=== PATIENT | female | born 1935 | race Caucasian/White ===

== ENCOUNTER 2019-09-11 15:15 | Inpatient (IN) | payer MEDICARE, OTHER ==
[~2019-09-11] VITALS: Ht 154.9 cm; Wt 48.4 kg
[2019-09-11] MEDS ORDERED: ASA81BEC PO (17:34)
[2019-09-11] MEDS ORDERED: LOVENOX40 MG/0.4 SUBQ (17:35)
[2019-09-11] MEDS ORDERED: RESTASIS1 EACH OPHTHALMIC (17:42)
[2019-09-11] MEDS ORDERED: HYDROXYZINE HCL25 M2 PO (17:44)
[2019-09-11] MEDS ORDERED: MULTIVITAMINS1 EAC6 PO (17:47)
[2019-09-11 18:25] VITALS: BP 111/58
[2019-09-11] MEDS ORDERED: TYLENOL EXTRA500 MG PO (19:25)
--- NOTE | 2019-09-11 19:26 | NUR ---
PATIENT ARRIVED VIA W/C VAN AT 1800. PAPER PACKET WAS LEFT AT [facility]. GINO AT [facility] WAS CALLED AT [phone] AND SAID SHE WILL FAX US ORDERS. PATIENT ALERT AND ORIENTED. ORIENTED TO ROOM AND BED CONTROLS. PATIENT ONLY ATE A FEW BITES OF SUPPER. USED CALL LIGHT TO USE BEDSIDE COMMODE TO HAVE LARGE BOWEL MOVEMENT. PATIENT HAD TO BE CUED FREQUENTLY TO ONLY BE TOE TOUCH WEIGHTBEARING TO RIGHT LOWER EXTREMITY, WITH GAIT BELT AND WALKER. BED ALARM AND CHAIR ALARM USED. PATIENT RESTING QUIETLY IN BED AT THIS TIME.
[2019-09-11] MEDS ORDERED: SARNA ANTI-ITC222 ML TOP (19:28)
[2019-09-11] MEDS ORDERED: LIDODERM1 EACH TOP (19:32)
--- NOTE | 2019-09-12 04:43 | NUR ---
ASSUMED CARES AT 1920. PT ALERT AND ORIENTED X3. PLEASANT AND FORGETFUL AT TIMES. PELVIC FX. RLE TTWB. WBAT TO LEFT WRIST. DENIED ANY NEED FOR PAIN MEDS. MIN ASSIST WITH GAIT BELT AND WALKER. UNSTEADY GAIT. UP TO BATHROOM. WEARS PULLUPS. ADMISSION ASSESSMENT COMPLETED. SLEPT WELL. CALL LIGHT IN REACH AND BED ALARM ON.
[2019-09-12 05:07] LABS: HEMATOCRIT 31.9 % (37.0-47.0); HEMOGLOBIN 10.6 gm/dL (12.0-15.0); MCH 27.7 pg (26.0-34.0); MCHC 33.2 g/dL (28.0-37.0); MCV 83.5 fL (80.0-100.0); MPV 7.7 fl. (7.2-11.1); RBC 3.81 mil/uL (4.20-5.00); RDW-CV 15.5 % (10.5-14.5); WBC 5.3 thou/uL (4.0-11.0)
[2019-09-12 05:23] LABS: URINE BILIRUBIN NEGATIVE (Negative); URINE BLOOD NEGATIVE (Negative); URINE CLARITY CLEAR; URINE COLOR YELLOW; URINE GLUCOSE-RANDOM NEGATIVE (Negative); URINE KETONES NEGATIVE (Negative); URINE LEUKOCYTES-REFLEX NEGATIVE (Negative); URINE NITRITE-REFLEX NEGATIVE (Negative); URINE PROTEIN NEGATIVE (Negative); URINE SPECIFIC GRAVITY 1.025 (1.005-1.030); URINE UROBILINOGEN 0.2 E.U./dl (0.2-1.0)
[2019-09-12 05:25] LABS: CALCIUM 8.5 mg/dL (8.5-10.1); CREATININE 0.8 mg/dL (0.6-1.3); POTASSIUM 3.4 mmol/L (3.5-5.1)
[2019-09-12 09:00] VITALS: BP 123/59
--- NOTE | 2019-09-12 11:59 | NUR ---
Nutrition: Pt admitted to rehab with pelvic FX. Regular diet ordered, but BG is elevated 241. RD restricted diet to CHO controlled. No albumin recorded. MVI ordered. Wt: 106#. No other nutrition interventions needed at this time. Will follow weekly. Mild risk.
--- NOTE | 2019-09-12 14:23 | NUR ---
SW met with pt to complete initial assessment, introduce self, and SW role on inpt rehab unit. Pt alert, oriented, slow to answer at times. Pt lives at home alone. Pt reported a history of falls getting out of her bed and pt goal is to "learn how to walk". Pt has cane, RW, wc, according to assessment. Pt says she is not sure of her plan at dc and for SW to discuss with pt son or dtr in law. SW called pt son and left a detailed message and requested call back. SW to continue to follow to assist with safe dc planning.
[2019-09-12 20:08] VITALS: BP 124/70
[2019-09-12 20:13] VITALS: BP 141/72
--- NOTE | 2019-09-12 20:18 | NUR ---
ALERT AND ORIENTED X3 WITH PERIODS OF FORGETFULNESS. PATIENT THOUGHT IT WAS 2018. DENIES NEED FOR PAIN PILL WITH OFFERED. USES LIDOCAINE PATCH FOR RIGHT SIDED PAIN WHICH PATIENT STATES IS HELPFUL. UP WITH 1 ASSIST GAIT BELT AND WALKER. CONTINENT OF BOWEL AND BLADDER. CALL LIGHT WITHIN REACH. BED AND CHAIR ALARM USED.
--- NOTE | 2019-09-13 00:11 | NUR ---
ASSUMED CARE AT 1930. RESTING IN BED. TURNS SELF. UP WITH ONE, GAIT BELT, WALKER, NEEDS MUCH CUEING TO MAINTAIN TTWB TO RLE. STAND PIVOT TO W/C TO TOILET. WILL USE BSC LATER IF NEEDED. TAKES PILLS WHOLE. DENIES PAIN, REFUSED SCHEDULED APAP. WRIST SPLINT ON RUE. INCONTINENT OF URINE BEYOND BRIEF ONTO PJ PANTS, BOTH CHANGED. HOURLY ROUNDS CONTINUE. USES CALL LITE APPROPRIATELY.
--- NOTE | 2019-09-13 05:22 | NUR ---
SLEPT MUCH OF THE NIGHT UP TO BSC TO VOID. NEEDS REMINDERS TO ONLY APPLY TTWB TO RLE, BUT STILL OBSERVED WITH FOOT FLAT ON GROUND. ABLE TO GET LEGS INTO BED PER SELF. HOURLY ROUNDS CONTINUE. BED ALARM ON. CALL LITE IN REACH.
[2019-09-13 08:30] VITALS: BP 129/58
[2019-09-13 20:08] VITALS: BP 143/56
--- NOTE | 2019-09-13 22:33 | NUR ---
ASSUMED CARE AT 1930. PATIENT RESTING IN BED. TURNS SELF. TTWB REINFORCED. MIPILEX DRESSING TO LT KNEE INTACT, NO REDNESS NOTED. NO INCREASED WARMTH ASSESSED. MOVES IN BED WELL. DENIES PAIN. HOURLY ROUNDS CONTINUE. BED ALARM ON. CALL LITE IN REACH.
--- NOTE | 2019-09-14 05:00 | NUR ---
SLELP MOST OF THE NIGHT EXCEPT WHEN AROUSING TO VOID. BED ALARM ON. NEEDS CUEING TO REMEMBER TO USE CALL LITE. PATIENT DOES NOT SEEM TO UNDERSTAND THE CONCEPT OF 24/7 NURSING. SEEMS SURPRISED TO SEE A NURSE ANSWERING HER NEEDS, ALTHOUGH SHE DOES REMEMBER AND IS CONCERNED ABOUT A PENDING SNOW STORM PREDICTED FOR TODAY. UP WITH CGA, GAIT BELT, WALKER. CUEING TO REMEMBER TTWB. ABLE TO GET LEGS BACK INTO BED PER SELF. DENIES PAIN. HOURLY ROUNDS CONTINUE. BED ALARM ON. CALL LITE IN REACH.
[2019-09-14 07:50] VITALS: BP 117/58
--- NOTE | 2019-09-14 19:10 | NUR ---
DR LOZADA SPOKE WITH PATIENT REGARDING HER CODE STATUS AND PT STATED SHE DOES WANT CPR AND A VENTILATOR IF NEEDED.
[2019-09-14 19:30] VITALS: BP 139/53
--- NOTE | 2019-09-14 21:01 | NUR ---
ASSUMED CARE AT 1930. PATIENT RESTING IN BED. TURNS SELF. UP WITH SBA, GAIT BELT, WALKER, NEEDS CUEING FOR TTWB. FORGETFUL AT TIMES BUT WAS VERY ALERT ABOUT THE SNOW STORM THAT CAME THROUGH TODAY AND CONCERNED ABOUT STAFF HAVING PROBLEMS GETTING TO WORK. MIPILEX TO LT KNEE C/D/I. CALL LITE IN REACH. BED ALARM ON. HOURLY ROUNDS CONTINUE.
--- NOTE | 2019-09-15 05:47 | NUR ---
SLEPT MOST OF THE NIGHT. TURNS SELF. VOIDS PER TOILET. NEEDS CUEING FOR TTWB. DENIES PAIN. HOURLY ROUNDS CONTINUE. BED ALARM ON. CALL LITE IN REACH.
[2019-09-15 08:13] VITALS: BP 121/65
--- NOTE | 2019-09-15 16:16 | NUR ---
ASSUMED CARE AT 0730. ALERT ORIENTED PLEASANT COOPERATIVE. HX OF PELVIC FX TTWBRLE NEEDS REMINDERS TO KEEP WEIGHT BEARING STATUS. FORGETFUL AT TIMES. TRANSFERS WITH SBA CUES TO HAND PLACEMENT WHEN GETTING UP FROM BED TO SITTING AND USE OF WALKER. LIODERM PATCH ON RT. BUTTOCKS. TYLENOL SCHEDULED GIVEN BEFORE P.T. THIS AFTERNOON. USES CALL LIGHT APPROPRIATELY FOR ASSIST. FEEDS SELF TAKES MEDS WITHOUT DIFFICULTY.
[2019-09-15 20:00] VITALS: BP 139/57
--- NOTE | 2019-09-16 05:22 | NUR ---
ASSUMED CARES AT 1920. ALERT AND ORIENTED. FORGETFUL AT TIMES. RLE TTWB. DENIED ANY NEED FOR PAIN MEDS. MIN ASSIST WITH GAIT BELT AND WALKER. UP TO BATHROOM. DOES OWN CARES. SLEPT OFF AND ON. CALL LIGHT IN REACH AND BED ALARM ON.
[2019-09-16 07:25] VITALS: BP 142/70
--- NOTE | 2019-09-16 15:43 | NUR ---
CM spoke with Pt's DIL, faxed facesheet to [facility] requesting that they evaluate for [place] ANTHONY, Pt may need LTC in the future.
--- NOTE | 2019-09-16 16:25 | NUR ---
PT IS REMINDED TO CALL FOR ASSIST WITH TRANSFERRS AND AMBULATION.SCHEDUALED TYLENOL GIVEN FOR C/O BACK ACHE THIS AFTERNOON. PT FORGETFULL BUT ALERT. PT IS CONTINENT OF BLADDER. PT EATS MEALS IN DINNINGROOM AND ENJOYS CONVERSATION WITH OTHERS.PT HAS WORKED WITH THERAPIES TODAY.
[2019-09-16 20:30] VITALS: BP 120/64
--- NOTE | 2019-09-17 05:17 | NUR ---
ASSUMED CARE AT 1920. ALERT AND ORIENTED BUT FORGETFUL. PLEASANT. NEEDS CUEING FOR TTWB RLE. DENIED ANY NEED FOR PAIN MEDS. MIN ASSIST WITH GAIT BELT AND WALKER. UP TO BATHROOM. DID HAVE 1 EPISODE OF URINARY INCONTINENCE IN BED. RN ASSISTED WITH BED/CLOTHING CHANGE. SLEPT WELL OTHERWISE. CALL LIGHT IN REACH AND BED ALARM ON.
[2019-09-17 08:00] VITALS: BP 115/50
--- NOTE | 2019-09-17 15:05 | NUR ---
AM ASSESSMENT AND VITAL SIGNS COMPLETED DOCUMENTED. PT IS ALERT, ORIENTED TO SELF AND USUALLY PLACE BUT VERY FORGETFUL REGARDING HER MEDICAL HISTORY. PT STATES SHE HAS BEEN AWARE THAT HER GLUCOSE LEVELS HAVE BEEN HIGH FOR A LONG TIME BUT SHE JUST IGNORES IT. NURSING ATTEMPTED TO PROVIDE EDUCATION ON DIABETES BUT PT STATED SHE DOESN'T WANT IT. PT WILL BE HAVING AN XRAY OF HER KNEE AND PELVIS TODAY. FALL PRECAUTIONS AND HOURLY ROUNDING CONTINUE.
--- NOTE | 2019-09-17 18:08 | NUR ---
Team conference held today. LIMA and Dr Melvin met with pt to review team conference summary and plan for pt to remain on rehab unit another few days, reteam on Sunday and possible dc Sunday to SNF vs home with family. LIMA called pt dtr in law who did not answer so LIMA left a detailed message requesting call back to discuss dc planning.
[2019-09-17 20:00] VITALS: BP 143/56
[2019-09-18 03:23] LABS: ABSOLUTE EOSINOPHILS 0.3 thou/uL (0.0-0.7); ABSOLUTE MONOCYTES 0.6 thou/uL (0.0-1.2); BASOPHILS 0.2 %; EOSINOPHILS 4.3 %; HEMATOCRIT 30.8 % (37.0-47.0); HEMOGLOBIN 10.3 gm/dL (12.0-15.0); LYMPHOCYTES 28.8 %; MCH 28.2 pg (26.0-34.0); MCHC 33.5 g/dL (28.0-37.0); MCV 84.1 fL (80.0-100.0); MONOCYTES 8.2 %; MPV 7.9 fl. (7.2-11.1); NUCLEATED RBCS 0 /100WBC; PLATELET COUNT* 282 thou/uL (150-400); POLYS 58.5 %; RBC 3.66 mil/uL (4.20-5.00); RDW-CV 15.4 % (10.5-14.5); WBC 6.8 thou/uL (4.0-11.0)
[2019-09-18 03:41] LABS: CALCIUM 9.3 mg/dL (8.5-10.1); CREATININE 0.8 mg/dL (0.6-1.3); MAGNESIUM 1.8 mg/dL (1.8-2.4); POTASSIUM 4.1 mmol/L (3.5-5.1)
--- NOTE | 2019-09-18 05:26 | NUR ---
ASSUMED CARE AT 1920. ALERT AND ORIENTED. BUT FORGETFUL. DENIED ANY NEED FOR PAIN MEDS. MIN ASSIST WITH GAIT BELT AND WALKER. UP TO BATHROOM SEVERAL TIMES OVERNIGHT. DOES OWN CARES. TTWB RLE. SLEPT OFF AND ON. CALL LIGHT IN REACH. BED ALARM ON.
[2019-09-18 10:09] VITALS: BP 95/63
--- NOTE | 2019-09-18 16:00 | NUR ---
ASSUMMED CARE OF PT AT 0730, PT ALERT, FORGETFUL, TRANSFERS WITH MIN ASSIST, GB, WALKER NEEDS CONSTANT CUEING TO MAINTAIN TTWB RIGHT LEG, ORTHO CONSULTED TO RECOMMEND WEIGHT BEAR STATUS, LIDODERM PATCH APPLIED TO RIGHT BUTTOCK, TAKING FOOD AND FLUIDS WELL, VOIDS PER TOILET, NO BM THIS SHIFT, PT NEEDS ENCOURAGEMENT TO BE UP IN CHAIR, WANTS TO RETURN TO BED IMMEDIATELY AFTER THERAPY IS COMPLETED, PARTICIPATED IN ALL THERAPIES, HOURLY ROUNDING COMPLETED, ASSESSMENT COMPLETE, WILL CONTINUE TO MONITOR.
[2019-09-18 19:42] VITALS: BP 123/56
--- NOTE | 2019-09-18 22:14 | NUR ---
ASSUMED CARE AT 1930. PATIENT RESTING IN BED. VOIDS PER TOILET, UP WITH GAIT BELT, WBAT, WALKER. DOES OWN CARES. TAKES PILLS WHOLE WITH WATER. REFUSED HS SNACK. DENIES PAIN. POSITIONS SELF, REFUSES TO TURN. DENIES PAIN. HOURLY ROUNDS CONTINUE. BED ALARM ON. CALL LITE IN REACH.
[2019-09-19 02:07] LABS: GLYCOHEMOGLOBIN (HGB A1C) 8.3 % (4.8-5.6)
--- NOTE | 2019-09-19 06:17 | NUR ---
SLEPT MOST OF THE NIGHT. VOIDED PER TOILET 3 TIMES. NEEDS ENCOURAGEMENT TO COMPLETELY RISE TO SITTING POSITION AND IS VERY SLOW WALKING TO TOILET. NO C/O PAIN. HOURLY ROUNDS CONTINUE. BED ALARM ON. CALL LITE IN REACH.
[2019-09-19 08:00] VITALS: BP 108/58
--- NOTE | 2019-09-19 14:00 | NUR ---
PT.S FAMILY WANTING PT.TO GO TO SNF AT DISCHARGE. PT.IN THERAPY. NO FAMILY HERE. NURSING SAID PT.COULD NOT REMEMBER NAME OF FACILITY FAMILY WANTED HER TO GO TO BUT KNOWS SHE NEEDS TO GO SOMEWHERE FOR THERAPIES. LEFT FOR SON,MARITZA PEREZ [phone] TO DISCUSS WHERE HE WOULD LIKE CM TO MAKE REFERRALS. ASKED HIM TO CALL CM BACK.
--- NOTE | 2019-09-19 15:17 | NUR ---
ASSUMMED CARE OF PT AT 0730, PT ALERT AND ORIENTED, FORGETFUL, PT TRANSFERS WITH SBA, GB WALKER WEIGHT BEAR TOLERATED, PT DENIES PAIN, TAKING FOOD AND FLUIDS WELL, VOIDS PER TOILET, HAD LUNCH IN DININGROOM, PARTICIPATED IN ALL THERAPIES, HOURLY ROUNDING COMPLETED, ASSESSMENT COMPLETE, WILL CONTINUE TO MONITOR.
[2019-09-19 20:13] VITALS: BP 128/72
[2019-09-19 21:50] VITALS: BP 128/72
--- NOTE | 2019-09-20 05:30 | NUR ---
MEDS GIVEN ORDERED. PT DENIED PAIN. UP TO THE BATHROOM WITH WALKER AND GAITBELT WITH MINIMUM ASSIST. PT NEEDED HELP WITH SITTING UP FROM LYING POSITION. CALL LIGHT WITHIN REACH. HOURLY ROUNDINGS COMPLETED. WILL CONTINUE TO MONITOR.
[2019-09-20 08:16] VITALS: BP 120/52
--- NOTE | 2019-09-20 14:26 | NUR ---
ASSUMED CARE AT 0730. ALERT ORIENTED PLEASANT COOPERATIVE. HX OF PELVIC FX WBAT. DENIES PAIN OR REQUESTS. TRANSFERS WITH G BELT WALKER AMBULATES WITH SLOW GAIT TO BR TO VOID AND HAD A SMALL BM. ABLE TO DO HYGEINE AND CLOTHING ADJUSTMENTS. USES CALL LIGHT FOR ASSISTANCE BUT DID PUT SELF INTO BED FROM RECLINER X 2. INSTRUCTED TO CALL FOR ASSIST HX OF FALLS. TO DR FOR LUNCH MEALS. APPETITE FAIR TAKES MEDS WITHOUT DIFFICULTY. PARTICIPATING IN THERAPIES, FORGETFUL AT TIMES.
[2019-09-20 19:20] VITALS: BP 123/78; BP 142/88
--- NOTE | 2019-09-21 05:20 | NUR ---
PT ALERT AND ORIENTED. VSS ON RA. MEDS GIVEN PER EMAR. PT SLEPT WELL THIS SHIFT. DENIES PAIN, N/V. PT UP TO BATHROOM WITH WALKER AND GAIT NELT ON STB ASSIST. NO BM NOTED THIS SHIFT. CALL LIGHT WITHIN REACH. HOURLY ROUNDINGS MADE. WILL CONTINUE TO MONITOR.
[2019-09-21 07:30] VITALS: BP 119/57
--- NOTE | 2019-09-21 16:45 | NUR ---
PT A&OX3 VSS. PT UP SBA WITH WALKER AND GAIT BELT. GAIT STEADY. BED/CHAIR ALARMS FOR SAFETY. PT IS ACCUCHECK, NO INSULIN REQUIRED THIS SHIFT. LIDOCAINE PATCH APPLIED TO R HIP/BUTTOCK AREA. PT REMAINS CONTINENT OF B/B THIS SHIFT. PT HAS BEEN APPROVED FOR WEIGHT BEARING TOLERATED PER THERAPY NOTES. PT RESTS IN ROOM WITH CALL LIGHT IN REACH, WILL CONRTINUE TO MONITOR.
[2019-09-21 19:30] VITALS: BP 125/56
--- NOTE | 2019-09-22 05:10 | NUR ---
ASSUMED CARES AT 1920. ALERT AND ORIENTED BUT FORGETFUL AT TIMES. DENIED ANY NEED FOR PAIN MEDS. SBA WITH GAIT BELT AND WALKER. UP TO BATHROOM. DOES OWN CARES. SLEPT WELL. CALL LIGHT IN REACH AND BED ALARM ON.
--- NOTE | 2019-09-22 16:42 | NUR ---
LIMA and Dr Melvin met with pt to review team conference summary and plan for pt to dc to SNF tomorrow, Sunday 09/23. LIMA met with pt son and pt son provided pt family preference of [facility]; LIMA faxed referral to [facility]. SW to continue to follow to assist with finalizing safe dc plan of SNF placement.
--- NOTE | 2019-09-22 18:20 | NUR ---
PATIENT AMBULATING WITH ASSISTANCE, WALKER, AND GAIT BELT. ALL SAFETY MEASURES MAINTAINED. PATIENT AWAKE IN BED. PATIENT DENIES FURTHER NEEDS AT THIS TIME.
[2019-09-22 19:30] VITALS: BP 137/58
--- NOTE | 2019-09-22 23:31 | NUR ---
ASSUMED CARE AT 1930. PATIENT RESTING IN BED. TURNS SELF. TAKES PILLS WHOLE WITH WATER. NO C/O PAIN. VOIDS PER TOILET. WBAT TO RLE. REFUSED HS INSULIN FOR BLOOD SUGAR OF 156, ALSO REFUSED HS SNACK. HOURLY ROUNDS CONTINUE. BED ALARM ON. CALL LITE IN REACH.
--- NOTE | 2019-09-23 06:19 | NUR ---
SLEPT MOST OF THE NIGHT. VOIDED PER TOILET, UP WITH GAIT BELT, WALKER, EXTRA TIME. NEEDS HELP RISING FROM LYING TO SITTING POSITION. NO C/O PAIN. HOURLY ROUNDS CONTINUE. BED ALARM ON. CALL LITE IN REACH.
[2019-09-23 07:35] VITALS: BP 112/54
[2019-09-23] MEDS ORDERED: ELIQUIS2.5 MG PO (11:21)
--- NOTE | 2019-09-23 18:07 | NUR ---
PATIENT AWAKE IN BED. PATIENT AMBULATED THIS SHIFT WITH ASSISTANCE, GAIT BELT, AND WALKER. ALL SAFETY MEASURES MAINTAINED. PATIENT DECLINED INSULIN FOR ELEVATED BLOOD GLUCOSE. PATIENT DENIES FURTHER NEEDS AT THIS TIME.
[2019-09-23 19:30] VITALS: BP 112/52
--- NOTE | 2019-09-24 05:43 | NUR ---
PT ALERT AND ORIENTED. VSS ON RA. PT SLEPT WELL THIS SHIFT. DENIES PAIN THIS SHIFT. PT'S BLOOD GLUCOSE WAS 204 THIS SHIFT. PT REFUSED INSULIN THIS SHIFT. OTHER MEDS GIVEN PER EMAR. FALL PRECAUTION IN PLACE. CALL LIGHT WITHIN REACH. HOURLY ROUNDINGS MADE. WILL CONTINUE PLAN OF CARE.
[2019-09-24 07:55] VITALS: BP 117/62
--- NOTE | 2019-09-24 15:36 | NUR ---
ASSUMMED CARE OF PT AT 0730, PT ALERT, FORGETFUL, TRANSFERS WITH SBA GB WALKER, PT AMBULATES TO BATHROOM TO VOID, PT HAS SET OFF ALARMS X 2 THIS SHIFT, PT RE EDUCATED N FALL RISK, TAKING FOOD AND FLUIDS, REFUSES TO GET UP IN CHAIR, WANTS TO REST IN BED, DID GET DRESSED AND DID HYGIENE AT SINK, REFUSED BATH, VISITORS HERE THIS PM, PT INSISTS ON GETTING IN [place] AT 330, PT INFORMED SHE SHOULD WAIT UNTIL AFTER DINNER BUT STARTED CHANGING CLOTHES, PT CHANGED CLOTHES INDEPENDENTLY. PT COMPLAINS OF PAIN IN RIGHT BUTTOCK, LIDOCAINE PATCH APPLIED, DENIED NEED FOR ADDITIONAL PAIN MEDICATION, ASSESSMENT COMPLETE, HOURLY ROUNDING COMPLETE, WILL CONTINUE TO MONITOR.
[2019-09-24 20:04] VITALS: BP 115/56
--- NOTE | 2019-09-25 06:09 | NUR ---
PT SLEPT WELL OVERNIGHT SHE STATES, AOX4, ABLE TO USE CALL LITE AND MAKE NEEDS KNOWN. CO SLIGHT HIP PAIN BUT DENIES NEED FOR PAIN MEDS. REFUSING INSULIN AT HS. ELIQUIS GIVEN, TAKES PILLS WITHOUT DIFFICULTY. UP WITH GB, WALKER AND SBA TO BR TO VOID WITHOUT DIFFICULTY. LLE SCABBED, HEALING. PT ANTICIPATING DISCHARGE TO [facility] TODAY. CALL LITE IN EASY REACH, BED ALARM ON FOR SAFETY OVERNIGHT.
[2019-09-25 07:49] VITALS: BP 101/47
[2019-09-25 09:22] VITALS: BP 101/47
--- NOTE | 2019-09-25 13:55 | NUR ---
LIMA followed up with Rufino Ashby [facility] admissions about pt pending SNF acceptance today. [facility] admissions said that there is no bed for pt today after all and not tomorrow either. LIMA called pt son Alexandre to discuss second choice for SNF and pt/family request [facility] SNF. LIMA faxed referral and spoke with Estrella in admissions at [facility]; they are able to accept pt today and arranged ride for 3 pm. LIMA faxed final orders and chart copied for continuation of care. LIMA spoke with Alexandre again to confirm and discuss details of dc to [facility] SNF. Pt/family in agreement with plan. Pt nurse aware. [facility] ph [phone]
--- NOTE | 2019-09-25 15:19 | NUR ---
PATIENT UP TO CHAIR FOR MEALS, PATIENT REQUSTED TO LAY IN BED BETWEEN THERAPIES. NO COMPLAINTS OF PAIN. UP WITH SBA AND USE OF WALKER AND GAIT BELT. REPORT CALLED TO [facility] FOR DISCHARGE, SPOKE WITH YURI. PATIENT TAKEN VIA WHEELCHAIR VAN WITH ALL BELONGINGS.
== END 2019-09-25 15:03 | DRG 536 ==
LOC: M.REH 15:15
PROVIDERS: Family Medicine; ADMIT Physical Medicine & Rehabilitation
DX: S32.9XXA Fracture of unspecified parts of lumbosacral spine and pelvis, initial encounter for closed fracture (principal); K21.9 Gastro-esophageal reflux disease without esophagitis; I25.10 Atherosclerotic heart disease of native coronary artery without angina pectoris; E11.42 Type 2 diabetes mellitus with diabetic polyneuropathy; E78.2 Mixed hyperlipidemia; I25.2 Old myocardial infarction; M06.9 Rheumatoid arthritis, unspecified; M54.30 Sciatica, unspecified side; Z96.653 Presence of artificial knee joint, bilateral; Z96.642 Presence of left artificial hip joint; Z90.49 Acquired absence of other specified parts of digestive tract; Z95.5 Presence of coronary angioplasty implant and graft; Z87.891 Personal history of nicotine dependence; Z88.8 Allergy status to other drugs, medicaments and biological substances; Z91.041 Radiographic dye allergy status; W19.XXXA Unspecified fall, initial encounter; Y93.89 Activity, other specified; Y92.89 Other specified places as the place of occurrence of the external cause; Y99.8 Other external cause status

== ENCOUNTER 2019-11-21 14:51 | Inpatient (IN) | payer MEDICARE, OTHER ==
[~2019-11-21] VITALS: Ht 154.9 cm; Wt 45.8 kg
[~2019-11-21 14:51] MED LIST: ASA81BEC PO; ELIQUIS2.5 MG PO; HYDROXYZINE HCL25 M2 PO; LIDODERM1 EACH TOP; LOVENOX40 MG/0.4 SUBQ; MULTIVITAMINS1 EAC6 PO; RESTASIS1 EACH OPHTHALMIC; SARNA ANTI-ITC222 ML TOP; TYLENOL EXTRA500 MG PO
[2019-11-21 15:01] VITALS: BP 94/50
[2019-11-21] MEDS ORDERED: MUCINEX600 MG PO (15:09)
[2019-11-21] MEDS ORDERED: LEVAQUIN 750 M750 MG PO (15:09)
[2019-11-21] MEDS ORDERED: IBUPROFEN IB200 MG PO (15:10)
[2019-11-21] MEDS ORDERED: IPRAT-ALBUT 0.5-3 ML INH (15:10)
[2019-11-21] MEDS ORDERED: FLORASTOR250 MG PO (15:11)
[2019-11-21 15:15] LABS: ABSOLUTE BASOPHILS 0.1 thou/uL (0.0-0.2); ABSOLUTE EOSINOPHILS 0.2 thou/uL (0.0-0.7); ABSOLUTE LYMPHOCYTES 1.4 thou/uL (0.8-5.3); ABSOLUTE MONOCYTES 0.6 thou/uL (0.0-1.2); ABSOLUTE NEUTROPHILS 9.1 thou/uL (1.6-8.1); BASOPHILS 0.6 %; EOSINOPHILS 1.5 %; HEMATOCRIT 33.9 % (37.0-47.0); HEMOGLOBIN 11.1 gm/dL (12.0-15.0); LYMPHOCYTES 12.4 %; MCH 27.2 pg (26.0-34.0); MCHC 32.8 g/dL (28.0-37.0); MCV 83.1 fL (80.0-100.0); MONOCYTES 4.9 %; MPV 7.3 fl. (7.2-11.1); NUCLEATED RBCS 0 /100WBC; PLATELET COUNT* 200 thou/uL (150-400); POLYS 80.6 %; RBC 4.08 mil/uL (4.20-5.00); RDW-CV 15.6 % (10.5-14.5); WBC 11.3 thou/uL (4.0-11.0)
[2019-11-21 15:23] LABS: APTT 27.7 Seconds (25.0-31.3); CALCIUM 8.3 mg/dL (8.5-10.1); INR 1.2; PROTIME 11.8 Seconds (9.20-11.50)
[2019-11-21 15:25] LABS: POTASSIUM 2.7 mmol/L (3.5-5.1)
[2019-11-21 15:33] LABS: ALBUMIN 2.6 g/dL (3.4-5.0); TOTAL BILIRUBIN 0.5 mg/dL (<0.1-1.0); TOTAL PROTEIN 6.4 g/dL (6.4-8.2)
[2019-11-21 17:09] VITALS: BP 108/50
[2019-11-21 17:30] VITALS: BP 83/48
--- NOTE | 2019-11-21 17:44 | EKG ---
[place] [address] ELECTROCARDIOGRAM REPORT Name: MARY MARKS Room: [place] [address] ADM IN ..#: [id number] Admission: 11/21/19 Attend Phys: Boyd Gonzalez, Discharge: Date of : 31 Date of Service: 11/21/19 1531 Report #: [id number] THIS REPORT FOR: //name// [facility] ED Test Date: 2019-11-21 Test Time: 15:31:59 Pat Name: MARY MARKS Department: Room: [facility] Gender: F Medicinal Chemist: : 1935 Requested By: Varun Mendieta Order Number: [id number] MD: Benny Kaufman Measurements Intervals [place] Rate: 99 P: 98 IA: 168 QRS: -46 QRSD: 109 T: 126 QT: 365 QTc: 469 Interpretive Statements Sinus rhythm LAD, consider left anterior fascicular block Abnormal repolarization, lateral leads No previous ECG available for comparison Electronically Signed On 11-21-2019 17:43:34 FEED HANDLER by Benny Kaufman [email or web address] <ELECTRONICALLY SIGNED> By: Benny Kaufman MD, FACC 11/21/19 1743 1531 1531 Benny Kaufman MD, [facility] /EPI
[2019-11-21 18:09] LABS: BF RBC 246306 /mm3; TOTAL CELL COUNT 1148 /mm3
[2019-11-21 18:20] LABS: SOURCE THORACENTESIS
[2019-11-21 18:21] LABS: CLARITY CLOUDY; TOTAL VOLUME 5850 ml
[2019-11-21 18:44] LABS: BF EOSINOPHILS 3 %; BF LYMPHOCYTES 84 %; BF MONOCYTES 1 %; BF POLYS 12 %
[2019-11-21 18:45] LABS: BF OTHER CYTO TO FOLLOW
[2019-11-21 19:30] VITALS: BP 104/49
--- NOTE | 2019-11-21 20:11 | NUR ---
PATIENT ARRIVED TO FLOOR AT 1730. DR. SALMON NOTIFIED OF PATIENT'S VITAL SIGNS. NEW ORDER RECEIVED AND VERIFIED WITH READ BACK. PATIENT AWAKE IN BED. PATIENT DENIES FURTHER NEEDS AT THIS TIME.
[2019-11-21] MEDS ORDERED: METFORMIN HCL500 M3 PO (20:15)
[2019-11-22] VITALS: BP 103/51
[2019-11-22 04:00] VITALS: BP 103/54
[2019-11-22 07:19] LABS: URINE BILIRUBIN NEGATIVE (Negative); URINE BLOOD NEGATIVE (Negative); URINE CLARITY CLEAR; URINE COLOR YELLOW; URINE GLUCOSE-RANDOM 2+ (Negative); URINE KETONES 1+ (Negative); URINE LEUKOCYTES-REFLEX NEGATIVE (Negative); URINE NITRITE-REFLEX NEGATIVE (Negative); URINE PROTEIN TRACE (Negative); URINE SPECIFIC GRAVITY >= 1.030 (1.005-1.030); URINE UROBILINOGEN 0.2 E.U./dl (0.2-1.0)
[2019-11-22 07:30] VITALS: BP 113/60
[2019-11-22 08:18] LABS: HEMATOCRIT 31.2 % (37.0-47.0); HEMOGLOBIN 10.1 gm/dL (12.0-15.0); MCH 27.5 pg (26.0-34.0); MCHC 32.5 g/dL (28.0-37.0); MCV 84.6 fL (80.0-100.0); MPV 7.4 fl. (7.2-11.1); NUCLEATED RBCS 0 /100WBC; PLATELET COUNT* 149 thou/uL (150-400); RBC 3.69 mil/uL (4.20-5.00); RDW-CV 15.5 % (10.5-14.5); WBC 9.3 thou/uL (4.0-11.0)
[2019-11-22 08:24] LABS: CALCIUM 7.2 mg/dL (8.5-10.1)
[2019-11-22 08:32] LABS: POTASSIUM 3.8 mmol/L (3.5-5.1)
[2019-11-22 08:57] LABS: ABSOLUTE LYMPHOCYTES 0.4 thou/uL (0.8-5.3); ABSOLUTE MONOCYTES 0.1 thou/uL (0.0-1.2); ABSOLUTE NEUTROPHILS 8.8 thou/uL (1.6-8.1); ANISOCYTOSIS 1+; PLATELET ESTIMATE DECREASED; POIKILOCYTOSIS 1+
[2019-11-22 16:00] VITALS: BP 86/45
--- NOTE | 2019-11-22 16:56 | NUR ---
PATIENT UP TO CHAIR WITH ENCOURAGEMENT TWICE THIS SHIFT. UP TO BATHROOM WITH ASSISTANCE AND USE OF WALKER. IVF INFUSING ORDERED, MULT ABX. MG REPLACED PER PROTOCOL FOR LAB VALUE OF 1.2, DR. SALMON NOTIFIED THAT MG LEVEL NOW 3.3, NO RESPONSE AT THIS TIME. PATIENT SEEN BY ST TODAY FOR C/O SWALLOWING PILLS. PATIENT PLACED ON [facility] ALT GROUND DIET FOR COMFORT. PATIENT STATED HER DENTURES ARE VERY SORE AND WILL SEE A DENTIST NEXT WEEK.
[2019-11-22 17:37] VITALS: BP 98/46
[2019-11-22 18:07] LABS: BODY FLUID AMYLASE 44 U/L (()); BODY FLUID LDH 657 IU/L (()); BODY FLUID PH 7.9 (Not Estab.); BODY FLUID PROTEIN 4.4 g/dL (())
[2019-11-22 19:40] VITALS: BP 94/48
[2019-11-23 02:09] LABS: GLYCOHEMOGLOBIN (HGB A1C) 7.1 % (4.8-5.6)
--- NOTE | 2019-11-23 06:01 | NUR ---
PT ALERT AND ORIENTED. VSS ON RA. MEDS GIVEN PER EMAR. PT REFUSED MUCINEX. NO COUGH NOTED THIS SHIFT. LA WAS CRITICAL. DR HOUSE NOTIFIED. NS 500ML BOLUS GIVEN ORDERED. LA RECHECK WAS 1.4. DR HOUSE NOTIFED. PT UP TO BATHROOM THIS SHIFT. FALL PRECAUTION IN PLACE. CALL LIGHT WITHIN REACH. HOURLY ROUNDINGS MADE. WILL CONTINUE TO MONITOR.
[2019-11-23 07:40] VITALS: BP 122/67
[2019-11-23 16:00] VITALS: BP 95/49
--- NOTE | 2019-11-23 16:09 | NUR ---
PATIENT UP TO CHAIR THIS AM, PATIENT WASHED UP AND ATE BREAKFAST IN CHAIR. NO COMPLAINTS OF PAIN. IV SL, SCHED ZOSYN INFUSED ORDERED. IV WAS RESTARTED TO LEFT AC, PATIENT WAS ROUNDED ON AND FOUND TO HAVE PULLED IV OUT. GOOD APPETITE THIS SHIFT, INSULIN GIVEN WITH MEALS WHEN REQUIRED. DR. SALMON PAGED REGARDING ORDERS FOR VIDEO SWALLOW TOMORROW RECOMMENDED BY ST FROM BEDSIDE EVAL ON 11/22. DR. SALMON READ MESSAGE THROUGH YOU CALL MD BUT NO ORDERS WERE RECEIVED.
[2019-11-23 16:40] LABS: SOURCE THORACENTESIS
[2019-11-23 19:30] VITALS: BP 113/54
[2019-11-24 04:25] LABS: ABSOLUTE EOSINOPHILS 0.1 thou/uL (0.0-0.7); ABSOLUTE LYMPHOCYTES 1.7 thou/uL (0.8-5.3); ABSOLUTE MONOCYTES 0.4 thou/uL (0.0-1.2); ABSOLUTE NEUTROPHILS 8.1 thou/uL (1.6-8.1); BASOPHILS 0.4 %; EOSINOPHILS 0.6 %; HEMATOCRIT 27.6 % (37.0-47.0); LYMPHOCYTES 16.5 %; MCH 27.6 pg (26.0-34.0); MCHC 32.5 g/dL (28.0-37.0); MCV 84.9 fL (80.0-100.0); MONOCYTES 4.3 %; MPV 7.5 fl. (7.2-11.1); NUCLEATED RBCS 0 /100WBC; PLATELET COUNT* 141 thou/uL (150-400); POLYS 78.2 %; RBC 3.25 mil/uL (4.20-5.00); RDW-CV 16.1 % (10.5-14.5); WBC 10.3 thou/uL (4.0-11.0)
[2019-11-24 04:44] LABS: CALCIUM 7.9 mg/dL (8.5-10.1); CREATININE 0.9 mg/dL (0.6-1.3); POTASSIUM 3.7 mmol/L (3.5-5.1)
--- NOTE | 2019-11-24 05:38 | NUR ---
PT ALERT AND ORIENTED. FORGETFUL. VSS ON RA. MEDS GIVEN PER EMAR. PT DENIES PAIN N/V THIS SHIFT. FALL PRECAUTION IN PLACE. PT SLEPT WELL THIS SHIFT. CALL LIGHT WITHIN REACH. HOURLY ROUNDINGS MADE. WILL CONTINUE TO MONITOR.
[2019-11-24] MEDS ORDERED: PAIN RELIEVER500 MG PO (11:50)
[2019-11-24] MEDS ORDERED: FLORASTOR250 MG PO (11:50)
[2019-11-24] MEDS ORDERED: MIRALAX17 GM PO (11:50)
[2019-11-24] MEDS ORDERED: PANTOPRAZOLE SO40 M1 PO (11:50)
[2019-11-24] MEDS ORDERED: LEVAQUIN 750 M750 MG PO (11:50)
--- NOTE | 2019-11-24 15:05 | NUR ---
Pt lived at home alone and has most recently been at [facility] SNF. Pt nurse reported pt can be forgetful. Pt has hx of inpt rehab at [facility]. Pt has cinthiae, RW, wc. Pt has supportive dtr in law and son. Pt off of iv abx today; possible dc soon however pulmonary recommending pt not ready to dc yet. SW to continue to follow to assist with safe dc planning.
--- NOTE | 2019-11-24 15:31 | NUR ---
ASSESSMENT COMPLETE. PT ALERT AND FORGETFUL. PULMONARY WANTED TO KEEP PATIENT HERE ANOTHER NIGHT. PT IS ON ROOM AIR, SOA WITH EXERTION. VSS. ST CONSULT. TAKES SMALL PILLS ONLY. ACCU CHECK ACHS. DENIES PAIN. BM TODAY. TOLERATING MEALS. DENIES N/V. SKIN W/D/I, BRUISING NOTED. IV ZOSYN GIVEN SCHEDULED. SEE ASSESSMENT AND VITALS FOR OTHER DETAILS. FALL RISK, BED ALARM ON. PT IS UP ONE ASSIST WITH WALKER. PT/OT ORDERED. CALL LIGHT WITHIN REACH, WILL CONTINUE PLAN OF CARE
[2019-11-24 16:00] VITALS: BP 117/59
[2019-11-24 21:00] VITALS: BP 111/51
--- NOTE | 2019-11-25 05:20 | NUR ---
PATIENT SLEPT PART OF THE NIGHT. IV ANTIBIOTIC WAS GIVEN ORDERED. PATIENT REMAINS ON ROOM AIR SATTING 92-94%. WILL CONTINUE TO MONITOR.
[2019-11-25 07:22] VITALS: BP 125/65
--- NOTE | 2019-11-25 13:11 | NUR ---
ASSESSMENT COMPLETE. PT ALERT, FORGETFUL. PULMONARY FOLLOWING PATIENT. ACCU CHECK ACHS. PT IS FALL RISK, BED ALARM IN PLACE. PATIENT HAD SKIN TEAR FROM ACCIDENTLY PULLING OUT IV, PICTURE TAKEN AND WRAPPED. PT IS UP STANDBY ASSIST WIHT WALKER, SOA WITH MIN EXERTION. SEE ASSESSMENT AND VITALS FOR OTHER DETAILS. CALL LIGHT WITHIN REACH, WILL CONTINUE PLAN OF CARE
[2019-11-25] MEDS ORDERED: AUGMENTIN 875-1 EACH PO (14:28)
[2019-11-25] MEDS ORDERED: HUMALOG100 UNIT/1 SUBQ (14:31)
[2019-11-25 14:42] VITALS: BP 125/65
[2019-11-25 14:50] VITALS: BP 125/65
--- NOTE | 2019-11-25 15:03 | NUR ---
SW called and left message for admissions at [facility] as pt is ready to dc to [facility] SNF today. DC order planner to fax needed info/referral and orders.
--- NOTE | 2019-11-25 16:59 | NUR ---
PATIENT DC TO [facility]. FOLLOW UP WITH PULMONARY, INFORMATION SENT IN DC INSTRUCTIONS.
--- NOTE | 2019-11-25 17:07 | PATH ---
[address] [address] PATHOLOGY RPT PROCEDURE Name: MARY MARKS Room: [address] IN [facility]#: [id number] Admission: 11/21/19 Date of : 31 Discharge: Report #: [id number] Path Case #: [id number] Note [facility] Accession Number: [id number] TESTS RESULT FLAG UNITS REF RANGE LAB Clinician Provided Cytology Information No. of containers..01 Other (Miscellaneous) Source: RIGHT PLEURAL FLUID DIAGNOSIS: 02 RIGHT PLEURAL FLUID INCONCLUSIVE. RARE, ISOLATED ATYPICAL CELLS IN BLOODY BACKGROUND, WITH VERY FEW INFLAMMATORY CELLS. THIS INTERPRETATION INCLUDES EVALUATION OF A CELL BLOCK. Signed out by: 02 Tyrese Casas MD, Pathologist NPI- [id number] Performed by: 01 Sarah Ho, Director Of Adult Epilepsy ([facility]) Gross description: 01 80ML, RED, 1 TP I CB /LCS 11/24/2019 1842 Local FLAG LEGEND: L-Low Normal,H-High Normal,LL-Alert Low,HH-Alert High <-Panic Low,>-Panic High,A-Abnormal,AA-Critical Abnormal Performed at: [address] [place] [address] Rick Dumont MD, [address] [place] [address] Tyrese Casas MD, Specimen Comment: A courtesy copy of this report has been sent to [phone], [phone] Specimen Comment: [id number] Specimen Comment: Report sent to ,DR SALMON / DR MADRID Specimen Comment: A duplicate report has been generated due to demographic updates. Performed at: [address], [place], [place] [id number] MD Rick Dumont MD Phone: [phone]
[2019-11-25 18:23] VITALS: BP 125/65
--- NOTE | 2019-11-25 18:28 | NUR ---
JACKI JAY AT 1820 WITH DAUGHTER. REPORTS CALLED TO BAIRON DIANA AT [facility]. PACKET SENT WITH DAUGHTER.
== END 2019-11-25 18:20 | DRG 177 ==
LOC: M.ERS 14:51 → M.3W 16:06 → M.TBA-ER 16:06 → M.3W 17:30
PROVIDERS: Family Medicine; ADMIT Internal Medicine
PROC: 0W993ZZ Drainage of Right Pleural Cavity, Percutaneous Approach (ICD-10-PCS; principal; 2019-11-21)
DX: J69.0 Pneumonitis due to inhalation of food and vomit (principal); J96.01 Acute respiratory failure with hypoxia; E43 Unspecified severe protein-calorie malnutrition; J90 Pleural effusion, not elsewhere classified; E87.2 Acidosis; Z68.1 Body mass index [BMI] 19.9 or less, adult; K21.9 Gastro-esophageal reflux disease without esophagitis; Z96.653 Presence of artificial knee joint, bilateral; I25.10 Atherosclerotic heart disease of native coronary artery without angina pectoris; I95.9 Hypotension, unspecified; E78.2 Mixed hyperlipidemia; E87.6 Hypokalemia; E11.42 Type 2 diabetes mellitus with diabetic polyneuropathy; M06.9 Rheumatoid arthritis, unspecified; M54.30 Sciatica, unspecified side; Z90.49 Acquired absence of other specified parts of digestive tract; Z95.5 Presence of coronary angioplasty implant and graft; Z79.899 Other long term (current) drug therapy; Z79.82 Long term (current) use of aspirin; Z88.8 Allergy status to other drugs, medicaments and biological substances; Z91.048 Other nonmedicinal substance allergy status; Z79.84 Long term (current) use of oral hypoglycemic drugs; Z79.2 Long term (current) use of antibiotics; I25.2 Old myocardial infarction; Z80.9 Family history of malignant neoplasm, unspecified; Z87.891 Personal history of nicotine dependence; Z87.81 Personal history of (healed) traumatic fracture; Z91.81 History of falling; Z79.51 Long term (current) use of inhaled steroids; Z79.4 Long term (current) use of insulin

== ENCOUNTER 2020-01-17 03:54 | Emergency (ER) | payer MEDICARE, OTHER ==
[~2020-01-17] VITALS: Ht 154.9 cm; Wt 44.9 kg
[~2020-01-17 03:54] MED LIST changes: +AUGMENTIN 875-1 EACH PO; +FLORASTOR250 MG PO; +HUMALOG100 UNIT/1 SUBQ; +IBUPROFEN IB200 MG PO; +IPRAT-ALBUT 0.5-3 ML INH; +LEVAQUIN 750 M750 MG PO; +METFORMIN HCL500 M3 PO; +MIRALAX17 GM PO; +MUCINEX600 MG PO; +PAIN RELIEVER500 MG PO; +PANTOPRAZOLE SO40 M1 PO
[2020-01-17] MEDS ORDERED: REFRESH CLASSI1 EACH OPHTHALMIC (04:26)
[2020-01-17] MEDS ORDERED: REMERON15 M2 PO (04:26)
[2020-01-17] MEDS ORDERED: ENSURE ACTIVE296 ML PO (04:27)
[2020-01-17 05:42] VITALS: BP 108/50
== END 2020-01-17 07:00 | disposition home or self-care (01) ==
LOC: M.ERS 03:54
DX: S00.83XA Contusion of other part of head, initial encounter (principal); M54.2 Cervicalgia; E11.40 Type 2 diabetes mellitus with diabetic neuropathy, unspecified; E78.5 Hyperlipidemia, unspecified; K21.9 Gastro-esophageal reflux disease without esophagitis; M06.9 Rheumatoid arthritis, unspecified; Z90.49 Acquired absence of other specified parts of digestive tract; Z98.51 Tubal ligation status; Z87.891 Personal history of nicotine dependence; Z91.048 Other nonmedicinal substance allergy status; Z88.8 Allergy status to other drugs, medicaments and biological substances; W18.39XA Other fall on same level, initial encounter; Y93.89 Activity, other specified; Y92.89 Other specified places as the place of occurrence of the external cause; Y99.8 Other external cause status